=== PATIENT | female | born 1990 | race Caucasian/White ===

== ENCOUNTER 2016-08-20 17:17 | Emergency (ER) | payer BC ==
[2016-08-20 18:02] VITALS: BP 152/98
--- NOTE | 2016-08-20 18:16 | UC ---
Complaint Female HPI - HPI Summary HPI Summary: 3 days of pain and burning with urination, noted some hematuria last night and this morning, no fevers chills or night sweats - History Of Current Complaint Chief Complaint: UCGU Stated Complaint: URINARY ISSUE Time Seen by Provider: 08/20/16 18:06 Hx Obtained From: Patient Hx Last Menstrual Period: 1 WEEK AGO ?: No Onset/Duration: Sudden Onset, Lasting Days - 3, Still Present Timing: Constant Severity Initially: Mild Severity Currently: Mild Character: Burning Aggravating Factor(s): Urination Associated Signs And Symptoms: Positive: Negative - Allergies/Home Medications Allergies/Adverse Reactions: Allergies Allergy/AdvReac Type Severity Reaction Status Date / Time Acetaminophen Allergy Nausea And Verified 08/20/16 18:02 Vomiting MED - ?NAME Allergy Severe Vomiting Uncoded 08/20/16 18:02 PMH/Surg Hx/FS Hx/Imm Hx Previously Healthy: Yes Endocrine History Of: Denies: Diabetes, Thyroid Disease Cardiovascular History Of: Denies: Cardiac Disorders, Hypertension Respiratory History Of: Denies: COPD, Asthma GI/ History Of: Denies: Ulcer - Surgical History Surgical History: None - Family History Known Family History: Positive: None - Social History Occupation: Employed Full-time Lives: With Family Alcohol Use: Occasionally Substance Use Type: None Smoking Status (MU): Never Smoked Tobacco Type: eCigarettes Review of Systems Constitutional: Negative Skin: Negative Eyes: Negative ENT: Negative Respiratory: Negative Cardiovascular: Negative Gastrointestinal: Negative Genitourinary: Dysuria, Hematuria, Frequency, Urgency Motor: Negative Neurovascular: Negative Musculoskeletal: Negative Neurological: Negative Psychological: Negative All Other Systems Reviewed And Are Negative: Yes Physical Exam Triage Information Reviewed: Yes Appearance: Well-Appearing, No Pain Distress, Well-Nourished Vital Signs: Initial Vital Signs Temp 98 F 08/20/16 17:59 Pulse 85 08/20/16 17:59 Resp 16 08/20/16 17:59 BP 152/98 08/20/16 17:59 Pulse Ox 100 08/20/16 17:59 Vital Signs Reviewed: Yes Eye Exam: Normal Eyes: Positive: Conjunctiva Clear ENT Exam: Normal ENT: Positive: Normal ENT inspection, Hearing grossly normal, Pharynx normal. Negative: Nasal congestion, Nasal drainage, Trismus, Muffled/hoarse voice Dental Exam: Normal Neck exam: Normal Neck: Positive: Supple, Nontender, No Lymphadenopathy Respiratory Exam: Normal Respiratory: Positive: Chest non-tender, Lungs clear, Normal breath sounds, No respiratory distress, No accessory muscle use Cardiovascular Exam: Normal Cardiovascular: Positive: RRR, No Murmur, Pulses Normal, Brisk Capillary Refill Musculoskeletal Exam: Normal Musculoskeletal: Positive: Strength Intact, ROM Intact, No Edema Neurological Exam: Normal Neurological: Positive: Alert, Muscle Tone Normal Psychological Exam: Normal Skin Exam: Normal Diagnostics - Laboratory Diagnostic Studies Completed/Ordered: Ua +leuks and blood Complaint Female Dx - Course Course Of Treatment: macrobid, pyridium, increase fluids, follow with pcp prn - Differential Dx/Diagnosis Differential Diagnosis/HQI/PQRI: Renal Colic, Ureteral Stone, Urinary Tract Infection Provider Diagnoses: UTI Discharge - Discharge Plan Condition: Stable Disposition: HOME Prescriptions: Nitrofurantoin Monohyd Macro [Macrobid] 100 mg PO BID #20 cap Phenazopyridine TAB* [Pyridium 100 mg TAB*] 100 mg PO TID PRN #6 tab PRN Reason: urinary pain Patient Education Materials: Nitrofurantoin Combination (By mouth), Urinary Tract Infection in Women (ED), Hypertension (ED) Referrals: Raj Myles MD [Primary Care Provider] - 2 Weeks (for Blood Pressure Recheck )
== END 2016-08-20 18:26 | disposition home or self-care (01) ==
LOC: UCEAST 17:17
DX: N39.0 Urinary tract infection, site not specified (principal)
CPT/HCPCS: 81003; 87077; 87086; 87186; 99212; G0463

== ENCOUNTER 2016-10-23 13:57 | Emergency (ER) | payer BC ==
[2016-10-23] MEDS ORDERED: Ibuprofen TAB* 800 MG PO ONE (14:58)
[2016-10-23 15:31] LABS: Hematocrit 42 % (35-47); Hemoglobin 13.6 g/dl (12.0-16.0); Mean Corpuscular HGB Conc 32 g/dl (31-36); Mean Corpuscular Hemoglobin 28 pg (27-31); Mean Corpuscular Volume 87 fL (80-97); Mean Platelet Volume 7 um3 (7.4-10.4); Red Blood Count 4.83 10^6/ul (4.0-5.4); Red Cell Distribution Width 14 % (10.5-15); White Blood Count 10.9 10^3/ul (3.5-10.8)
[2016-10-23 15:44] LABS: Urine Bacteria Absent (Absent); Urine Bilirubin Negative (Negative); Urine Glucose Negative (Negative); Urine Nitrite Negative (Negative)
[2016-10-23 15:47] LABS: ALT 13 U/L (7-52); AST 16 U/L (13-39); Alkaline Phosphatase 81 U/L (34-104); Amylase 55 U/L (29-103); Anion Gap 7 mmol/L (2-11); BUN/Creatinine Ratio 22.7 (8-20); Blood Urea Nitrogen 17 mg/dL (6-24); C Reactive Protein 31.14 mg/L (< 5.00); CO2 Carbon Dioxide 25 mmol/L (22-32); Calcium 9.3 mg/dL (8.6-10.3); Chloride 107 mmol/L (101-111); Creatine Kinase 57 U/L (10-223); EGFR African American 122.1 (>60); EGFR Non-African American 94.9 (>60); Glucose 87 mg/dL (70-100); Lipase 39 U/L (11.0-82.0); Potassium 3.9 mmol/L (3.5-5.0); Sodium 139 mmol/L (133-145)
[2016-10-23] MEDS ORDERED: Ketorolac INJ* 60 MG/2 ML VIAL IM ONE (16:41)
[2016-10-23] MEDS ORDERED: Ketorolac INJ* 60 MG/2 ML VIAL ONE (16:43)
--- NOTE | 2016-10-23 17:31 | RAD ---
INDICATION: Hematuria, left flank pain. COMPARISON: There are no prior studies available for comparison. TECHNIQUE: A CT scan of the abdomen and pelvis was performed without intravenous or oral contrast. Contiguous axial sections were obtained from the lung bases through the symphysis pubis. Images were reconstructed in the coronal and sagittal planes. FINDINGS: The lung bases are clear. No pleural effusion is present. The liver is moderately enlarged without focal abnormality on this noncontrast study and appears unchanged from the prior exam. The gallbladder appears contracted. No calcific gallstones are seen. The spleen is within normal limits in size. No pancreatic calcifications or ductal distention is seen. The adrenal glands and kidneys are normal in size. No renal calculi or hydronephrosis is seen. No ureteral or bladder calculi are seen. The aorta is normal in caliber without significant calcific plaque. No significant enlarged retroperitoneal lymph nodes are seen. The stomach, small and large bowel appear nondistended. The appendix is within normal limits. There is no evidence for diverticulitis or colitis. The uterus is anteverted and normal in size. No free intraperitoneal air or fluid is seen. No significant focal osseous abnormality is seen. IMPRESSION: 1. NO EVIDENCE FOR ACUTE FINDING OR CAUSE FOR THE PATIENT'S ABDOMINAL PAIN IS SEEN. 2. HEPATOMEGALY, UNCHANGED.
[2016-10-23] MEDS ORDERED: Oxycodone TAB(NF) 10 MG TAB IMMEDIATE RELEASE PO ONE (20:21)
[2016-10-23] MEDS ORDERED: Sulfamethox/Trimethoprim DS 800/160* TAB PO ONE (20:23)
[2016-10-23] MEDS ORDERED: Ondansetron ODT TAB* 4 MG PO ONE (20:23)
[2016-10-23] MEDS ORDERED: Cyclobenzaprine TAB* 10 MG PO ONE (20:23)
[2016-10-23] MEDS ORDERED: oxyCODONE TAB* 5 MG TAB PO ONE (21:00)
[2016-10-23 21:29] VITALS: BP 147/92
--- NOTE | 2016-10-24 02:51 | ED ---
Martha Martinez Alfonso, scribed for Cecilia Ulloa MD on 10/23/16 at 1459 . GI/ HPI - HPI Summary HPI Summary: This patient is a 26 year old F presenting to [facility] c/o acute sharp left-sided flank pain which began three days ago. The pain became worse yesterday and she is currently in "a lot of pain." Ibuprofen did not alleviate her symptoms. Sx aggravated by movement and alleviated by nothing. She denies injury. Denies fever, urinary sxs. Pt states she was lifting and moving items 5 days ago, but pain did not become severe until today. The patient drove here herself. Denies PMHx of kidney stones. LNMP a few weeks ago, states she is not Pg. Acetaminophen allergy noted. - History of Current Complaint Chief Complaint: EDFlankPain Time Seen by Provider: 10/23/16 14:58 Stated Complaint: LT FLANK PAIN Hx Obtained From: Patient Onset/Duration: Started Days Ago - 3, Worse Since - Yesterday Timing: Constant Severity: Moderate Current Severity: Moderate Pain Intensity: 8 Location of Pain: Flank - Left-sided Pain Characteristics: Sharp Associated Signs and Symptoms: Positive: Flank Pain - left. Negative: Fever, Dysuria, Chills, Cough, UTI Symptoms Aggravating Factor(s): Movement, Deep Breaths Alleviating Factor(s): Nothing - Allergy/Home Medications Allergies/Adverse Reactions: Allergies Allergy/AdvReac Type Severity Reaction Status Date / Time Acetaminophen Allergy Nausea And Verified 08/20/16 18:02 Vomiting MED - ?NAME Allergy Severe Vomiting Uncoded 08/20/16 18:02 PMH/Surg Hx/FS Hx/Imm Hx Previously Healthy: Yes Endocrine/Hematology History: Denies: Hx Diabetes, Hx Thyroid Disease Cardiovascular History: Denies: Hx Hypertension Respiratory History: Denies: Hx Asthma, Hx Chronic Obstructive Pulmonary Disease (COPD) GI History: Denies: Hx Ulcer Infectious Disease History: No Infectious Disease History: Denies: Hx Hepatitis, Hx Human Immunodeficiency Virus (HIV), Traveled Outside the [place] in Last 30 Days - Family History Known Family History: Negative: Diabetes Family History: polycystic kidney disease - Social History Lives: With Family Alcohol Use: Occasionally Substance Use Type: Reports: None Smoking Status (MU): Never Smoked Tobacco Type: eCigarettes Review of Systems Constitutional: Negative Eyes: Negative ENT: Negative Cardiovascular: Negative Respiratory: Negative Gastrointestinal: Negative Genitourinary: Negative Positive: flank pain Musculoskeletal: Negative Skin: Negative Neurological: Negative Psychological: Normal All Other Systems Reviewed And Are Negative: Yes Physical Exam Triage Information Reviewed: Yes Vital Signs On Initial Exam: Initial Vitals Temp Pulse Resp BP Pulse Ox 97.6 F 105 20 178/88 100 10/23/16 14:25 10/23/16 14:25 10/23/16 14:25 10/23/16 14:25 10/23/16 14:25 Vital Signs Reviewed: Yes Appearance: Positive: Well-Nourished, Ill-Appearing, Pain Distress Skin: Positive: Warm, Dry, Other - no rash Eyes: Positive: EOMI, Conjunctiva Clear ENT: Positive: Normal ENT inspection, Hearing grossly normal. Negative: Muffled /hoarse voice Neck: Positive: Supple, Nontender, No Lymphadenopathy Respiratory/Lung Sounds: Positive: Clear to Auscultation, Breath Sounds Present Cardiovascular: Positive: RRR, Pulses are Symmetrical in both Upper and Lower Extremities. Negative: Murmur Abdomen Description: Positive: Nontender, No Organomegaly, Soft, CVA Tenderness (L). Negative: Bruit, CVA Tenderness (R), Distended, Guarding, Hepatomegaly, McBurney's Point Tenderness, Peritoneal Signs, Pulsatile Mass, Splenomegaly Bowel Sounds: Positive: Present Musculoskeletal: Positive: Strength/ROM Intact. Negative: Edema Left, Edema Right Neurological: Positive: Sensory/Motor Intact, Alert, Oriented to Person Place, Time. Negative: Facial Droop, Focal Deficit @, Slurred Speech Psychiatric: Positive: Normal Diagnostics - Vital Signs Vital Signs Temp Pulse Resp BP Pulse Ox 10/23/16 14:27 98.2 F 94 20 177/88 100 10/23/16 14:25 97.6 F 105 20 178/88 100 - Laboratory Lab Results: Lab Results 10/23/16 10/23/16 10/23/16 Range/Units 15:21 15:21 15:21 WBC 10.9 H (3.5-10.8) 10^3/ul RBC 4.83 (4.0-5.4) 10^6/ul Hgb 13.6 (12.0-16.0) g/dl Hct 42 (35-47) % MCV 87 (80-97) fL MCH 28 (27-31) pg MCHC 32 (31-36) g/dl RDW 14 (10.5-15) % Plt Count 320 (150-450) 10^3/ul MPV 7 L (7.4-10.4) um3 Neut % (Auto) 70.6 (38-83) % Lymph % (Auto) 21.8 L (25-47) % Rains % (Auto) 5.9 (1-9) % Eos % (Auto) 0.6 (0-6) % Baso % (Auto) 1.1 (0-2) % Absolute Neuts (auto) 7.7 (1.5-7.7) 10^3/ul Absolute Lymphs (auto) 2.4 (1.0-4.8) 10^3/ul Absolute Monos (auto) 0.6 (0-0.8) 10^3/ul Absolute Eos (auto) 0.1 (0-0.6) 10^3/ul Absolute Basos (auto) 0.1 (0-0.2) 10^3/ul Absolute Nucleated RBC 0 10^3/ul Nucleated RBC % 0 INR (Anticoag Therapy) 0.87 L (0.89-1.11) Sodium 139 (133-145) mmol/L Potassium 3.9 (3.5-5.0) mmol/L Chloride 107 (101-111) mmol/L Carbon Dioxide 25 (22-32) mmol/L Anion Gap 7 (2-11) mmol/L BUN 17 (6-24) mg/dL Creatinine 0.75 (0.51-0.95) mg/dL Est GFR ( Amer) 122.1 (>60) Est GFR (Non-Af Amer) 94.9 (>60) BUN/Creatinine Ratio 22.7 H (8-20) Glucose 87 (70-100) mg/dL Lactic Acid (0.5-2.0) mmol/L Calcium 9.3 (8.6-10.3) mg/dL Total Bilirubin 0.20 (0.2-1.0) mg/dL AST 16 (13-39) U/L ALT 13 (7-52) U/L Alkaline Phosphatase 81 (34-104) U/L Total Creatine Kinase 57 (10-223) U/L C-Reactive Protein 31.14 H (< 5.00) mg/L Total Protein 7.0 (6.4-8.9) g/dL Albumin 4.0 (3.2-5.2) g/dL Globulin 3.0 (2-4) g/dL Albumin/Globulin Ratio 1.3 (1-3) Amylase 55 (29-103) U/L Lipase 39 (11.0-82.0) U/L Beta HCG, Quant < 0.60 mIU/mL Urine Color Urine Appearance Urine pH (5-9) Ur Specific [place] (1.010-1.030) Urine Protein (Negative) Urine Ketones (Negative) Urine Blood (Negative) Urine Nitrate (Negative) Urine Bilirubin (Negative) Urine Urobilinogen (Negative) Ur Leukocyte Esterase (Negative) Urine WBC (Auto) (Absent) Urine RBC (Auto) (Absent) Ur Squamous Epith Cells (Absent) Urine Bacteria (Absent) Urine Glucose (Negative) 10/23/16 10/23/16 Range/Units 15:21 15:25 WBC (3.5-10.8) 10^3/ul RBC (4.0-5.4) 10^6/ul Hgb (12.0-16.0) g/dl Hct (35-47) % MCV (80-97) fL MCH (27-31) pg MCHC (31-36) g/dl RDW (10.5-15) % Plt Count (150-450) 10^3/ul MPV (7.4-10.4) um3 Neut % (Auto) (38-83) % Lymph % (Auto) (25-47) % Rains % (Auto) (1-9) % Eos % (Auto) (0-6) % Baso % (Auto) (0-2) % Absolute Neuts (auto) (1.5-7.7) 10^3/ul Absolute Lymphs (auto) (1.0-4.8) 10^3/ul Absolute Monos (auto) (0-0.8) 10^3/ul Absolute Eos (auto) (0-0.6) 10^3/ul Absolute Basos (auto) (0-0.2) 10^3/ul Absolute Nucleated RBC 10^3/ul Nucleated RBC % INR (Anticoag Therapy) (0.89-1.11) Sodium (133-145) mmol/L Potassium (3.5-5.0) mmol/L Chloride (101-111) mmol/L Carbon Dioxide (22-32) mmol/L Anion Gap (2-11) mmol/L BUN (6-24) mg/dL Creatinine (0.51-0.95) mg/dL Est GFR ( Amer) (>60) Est GFR (Non-Af Amer) (>60) BUN/Creatinine Ratio (8-20) Glucose (70-100) mg/dL Lactic Acid 1.5 (0.5-2.0) mmol/L Calcium (8.6-10.3) mg/dL Total Bilirubin (0.2-1.0) mg/dL AST (13-39) U/L ALT (7-52) U/L Alkaline Phosphatase (34-104) U/L Total Creatine Kinase (10-223) U/L C-Reactive Protein (< 5.00) mg/L Total Protein (6.4-8.9) g/dL Albumin (3.2-5.2) g/dL Globulin (2-4) g/dL Albumin/Globulin Ratio (1-3) Amylase (29-103) U/L Lipase (11.0-82.0) U/L Beta HCG, Quant mIU/mL Urine Color Yellow Urine Appearance Clear Urine pH 6.0 (5-9) Ur Specific [place] 1.020 (1.010-1.030) Urine Protein Negative (Negative) Urine Ketones Negative (Negative) Urine Blood 1+ H (Negative) Urine Nitrate Negative (Negative) Urine Bilirubin Negative (Negative) Urine Urobilinogen Negative (Negative) Ur Leukocyte Esterase Trace H (Negative) Urine WBC (Auto) Trace(0-5/hpf) (Absent) Urine RBC (Auto) 1+(3-5/hpf) H (Absent) Ur Squamous Epith Cells Present H (Absent) Urine Bacteria Absent (Absent) Urine Glucose Negative (Negative) Result Diagrams: 10/23/16 15:21 10/23/16 15:21 Lab Statement: Any lab studies that have been ordered have been reviewed, and results considered in the medical decision making process. - CT CT A/P CT Interpretation: No Acute Changes - 1. NO EVIDENCE FOR ACUTE FINDING OR CAUSE FOR THE PATIENT'S ABDOMINAL PAIN IS SEEN. 2. HEPATOMEGALY, UNCHANGED. CT Interpretation Completed By: Radiologist Re-Evaluation - Re-Evaluation First Eval Re-Evaluation Time: 20:48 Change: Unchanged Comment: Still in pain, but wants to go home. Explained the differential diagnoses to her, though it is likely muscle strain. GIGU Course/Dx - Course Assessment/Plan: Pt is a 26 y/o F who presents to ED c/o sharp L flank pain for 3 days, worsening yesterday. Denies injury. No PMHx kidney stones. CT Abd/Pel reveals hepatomegaly with no other acute findings. Pt states she has had prior CT's and been dx'd constipation, believes she was told hepatomegaly in the past. No pyelo or ureteral stones or polycystic kidneys on CT. No cause for pt 's pain based on CT. Pt is worse with movement, was relieved with toradol IM. Pt does not want narcotic prescription (a family member abuses narcotics). Pt agrees to treat possible UTI, try oral toradol and flexeril as muscle relaxant. She will f/u re hepatomegaly. Allergies noted. Pt medications reviewed this visit. - Diagnoses Differential Diagnoses - Female: Constipation, Diverticulitis, Herpes - zoster, Pneumonia, Urinary Tract Infection, Ureteral Calculi Provider Diagnoses: Acute left flank pain, Hepatomegaly Discharge - Discharge Plan Condition: Stable Disposition: HOME Prescriptions: Cyclobenzaprine TAB* [Flexeril 10 MG TAB*] 10 mg PO TID PRN #15 tab PRN Reason: Pain Ketorolac TAB * [Toradol TAB *] 10 mg PO Q6H #20 tab Sulfamethox/Trimethoprim DS* [Bactrim DS 800/160 TAB*] 1 tab PO BID #14 tab Patient Education Materials: Flank Pain (ED) Referrals: Raj Myles MD [Primary Care Provider] - 2 Days Additional Instructions: Please stop the ibuprofen while you are taking ketorolac for pain. Return to the ED if you have any new or worsening symptoms. The documentation as recorded by the Martha vazquez Alfonso accurately reflects the service I personally performed and the decisions made by me, Cecilia Ulloa MD.
== END 2016-10-23 21:27 | disposition home or self-care (01) ==
LOC: ED 13:57
DX: R10.84 Generalized abdominal pain (principal); R16.0 Hepatomegaly, not elsewhere classified
CPT/HCPCS: 36415; 74176; 80053; 81003; 81015; 82150; 82550; 83605; 83690; 84702; 85025; 85610; 86140; 87086; 90471; 99284; A9270-GY; J1885

== ENCOUNTER 2019-07-06 09:36 | Emergency (ER) | payer BC, OTHER ==
--- OUTSIDE RECORDS SUMMARY | 2019-07-06 11:31 | XMS REPORT | Continuity of Care Document ---
:1990 External Reference #:[id number] Author Name Constanza Hartmann DNP, RN, S[employer]K SCREEN PROCESSOR-BC (transmitted by agent of provider Janice Crocektt) Address [address], [address] [place] [address] Care Team Providers Name Role Phone Florence Chliders MD - Internal Care Team Information Equipment Maintenance Tech Medicine Problems Active Problems Provider Date Closed fracture of lumbar vertebra Sj Venegas M.D. Onset: 05/24/2015 without spinal cord injury Obstructive sleep apnea syndrome Constanza Hartmann DNP, RN, S[employer]K SCREEN PROCESSOR-BC Onset: 10/2017 Tobacco user Constanza Hartmann DNP RN, SILK SCREEN PROCESSOR-BC Onset: 07/20/2017 Disorder of nasal cavity Constanza Hartmann DNP RN, S[employer]K SCREEN PROCESSOR-BC Onset: 12/17/2017 Body mass index 30+ - obesity Constanza Hartmann DNP, RN, SILK SCREEN PROCESSOR-BC Onset: 2017 Social History Type Date Description Comments Sex Unknown Tobacco Use Start: Unknown Occasionally Smokes Cigarettes Tobacco Use Start: Unknown Vaping Every day, with nicotine Smoking Status Reviewed: 05/26/19 Vaping Every day, with nicotine ETOH Use Occasionally consumes alcohol Recreational Drug Use Denies Drug Use Tobacco Use Start: Unknown Patient is a current Occasional cigarette smoker, smokes some days Smoking 2013 Vaping Every day, with nicotine Exercise Type/Frequency Exercises regularly Exercise Type/Frequency Walks 5 times a week Allergies, Adverse Reactions, Alerts Active Allergies Reaction Severity Comments Date Acetaminophen 05/24/2015 Medications Active Medications SIG Qnty Indications Ordering Provider Date Jolessa daily Unknown 0.15-0.03mg Tablets Ibuprofen 1 by mouth three Unknown 600mg Tablets times a day as needed Trazodone HCL 1 tablet at Unknown 50mg bedtime as needed Tablets for sleep (states not taking 03/25/18) Immunizations Description No Information Available Vital Signs Date Vital Result Comment 05/26/2019 8:03am Height 63 inches 5'3" Weight 198.00 lb Heart Rate 91 /min BP Systolic Sitting 128 mmHg BP Diastolic Sitting 80 mmHg O2 % BldC Oximetry 98 % BMI (Body Mass Index) 35.1 kg/m2 03/31/2019 8:01am Height 63 inches 5'3" Weight 185.00 lb Heart Rate 107 /min BP Systolic 130 mmHg BP Diastolic 80 mmHg O2 % BldC Oximetry 97 % BMI (Body Mass Index) 32.8 kg/m2 Results Description No Information Available Procedures Description No Information Available Medical Devices Description No Information Available Encounters Type Date Location Provider Dx Diagnosis Office Visit 03/31/2019 Pul[facility] And Constanza Hartmann, G47.33 Obstructive sleep 8:15a [facility], [employer]K SCREEN PROCESSOR-KIKO apnea (adult) [facility] (pediatric) G47.14 Hypersomnia due to medical condition Assessments Date Code Description Provider 05/26/2019 G47.33 Obstructive sleep apnea (adult) Constanza Hartmann DNP, RN, (pediatric) [employer] SCREEN PROC[employer]BC 05/26/2019 G47.14 Hypersomnia due to medical Constanza Hartmann DNP, RN, condition [employer] SCREEN PROCESSOR-BC 05/26/2019 F17.200 Nicotine dependence, unspecified, Constanza Hartmann DNP RN, uncomplicated [employer]K SCREEN PROCESSOR-BC 03/31/2019 G47.33 Obstructive sleep apnea (adult) Constanza Hartmann DNP, RN, (pediatric) [employer] SCREEN PROCESSOR-BC 03/31/2019 G47.14 Hypersomnia due to medical Constanza Hartmann DNP, RN, condition SILK SCREEN PROCESSOR- Plan of Treatment Future Appointment(s):09/01/2019 8:15 am - Constanza Hartmann DNP, RN, SILK SCREEN PROCESSOR-BC at [facility]05/26/2019 - Constanza Hartmann DNP, RN, SILK SCREEN PROCESSOR- BCG47.33 Obstructive sleep apnea (adult) (pediatric)Comments:Sleep Apnea - NPSG 06/22/17 AHI 6.9/hour, ada oxygen 92% On CPAP 5-7 cm AHI 2.3/hourFollow up: 3 monthsRecommendations:Continue PAP device, Benefitting and increase use Research disinfecting devices (ozone vs ultraviolet) Cleaning Wipe off mask daily (baby wipe-no scent, or warm water) Clean mask, tubing, filter, and water chamber weekly in mild no scent dish soap and water. Hang to dry. If you have any sleepinesswhile driving you MUST avoid operating a vehicle or machinery. If you have difficulty with your equipment, or need to replace your mask or hoses, please contact your homecare agency. A weight change of20 pounds or more may have an effect on your equipment; if you are experiencing problems please callfor an appointment. Weight loss recommended, reduce carbohydrates. Use plate method. Switch to herbal tea (no sugar) If you have any further questions, please call the [facility] at [phone].g47.18 Hypersomnia due to medical conditionRecommendations:Complicated by untreated sleep apnea, recommend increase use of CPAPF17.200 Nicotine dependence, unspecified, uncomplicatedRecommendations:Continue to cut down Functional Status Description No Information Available Mental Status Description No Information Available Referrals Description No Information Available
--- OUTSIDE RECORDS SUMMARY | 2019-07-06 11:31 | XMS REPORT | Continuity of Care Document ---
:1990 External Reference #:[id number] Author Name Florence Chidlers M.D. Address [address] [place] [address] Care Team Providers Name Role Phone Florence Childers - Family Medicine Care Team Information Oncology Physician Assistant Denise López MD - Sports Medicine Care Team Information Oncology Physician Assistant [phone] Problems Active Problems Provider Date Gout Raj Myles M.D. Onset: 01/22/2015 Tobacco user Florence Childers M.D. Onset: 08/01/2012 Social History Type Date Description Comments Sex Unknown ETOH Use Occasional 3 times weekly, 1-3 drink each time. average - 5 per week. Tobacco Use Start: Unknown Patient is a current 1-2 a day. vapes smoker, smokes every day every day, couple of times a day Smoking Status Reviewed: 03/01/19 Patient is a current 1-2 a day. vapes smoker, smokes every day every day, couple of times a day Exercise Exercises regularly joined a gym. Type/Frequency walks 1/2 hour to 45 min every day at her lunch break. Seat Belt/Car Seat Always uses seat belt Allergies, Adverse Reactions, Alerts Active Allergies Reaction Severity Comments Date Acetaminophen severe nausea 02/07/2014 Tomatoes abd pain/severe diarrhea 02/17/2018 Inactive Allergies NKDA 06/27/2012 Medications Active Medications SIG Qnty Indications Ordering Date Provider Amoxicillin/Clavulana 1 twice a day w/ 20tabs J02.9 Florence Flores 06/22/2019 te Potassium food. Nicolas Childers 875-125mg Tablets Jolessa take one tablet by 91tabs Z30.9 Damaris He, 09/10/2012 0.15-0.03mg mouth once daily ACCOUNTS PAYABLE ASSISTANT Tablets Imodium A-D 2 tabs after first Unknown 2mg Tablets diarrrheal stool, 1 after each subsequent stool, mdd 8 prn Ibuprofen 200 3-4 tabs by mouth Unknown 200mg every 4 hours as Tablets needed One Daily 1 tab daily Unknown Multivitamin Women Tablets History Medications Fluconazole 1 by mouth. 4tabs B37.3 Florence Flores 03/01/2019 - 200mg repeat in 4 days Nicolas Childers 06/22/2019 Tablets as necessary Amoxicillin/Clavulan 1 by mouth twice 28tabs J01.90 Damaris Neri, 2018 - ate Potassium a day with food ACCOUNTS PAYABLE ASSISTANT 03/01/2019 875-125mg Tablets Guaifenesin-Codeine 5-10ml by mouth 120ml R05 Yris 01/30/2019 - at hs prn cough , [place], Afnp-C 02/06/2019 100-10mg/5ML Syrup may repeat in 3-4 hrs x 1 Immunizations CPT Code Status Date Vaccine Lot # [id number] Given 02/12/2017 Tdap Tetanus, W Pertussis [id number] Vital Signs Date Vital Result Comment 06/22/2019 3:44pm BP Systolic 136 mmHg BP Diastolic 90 mmHg Heart Rate 84 /min Body Temperature 98.4 F Height 63 inches 5'3" Weight 203.00 lb BMI (Body Mass Index) 36.0 kg/m2 03/01/2019 1:05pm BP Systolic 122 mmHg BP Diastolic 90 mmHg Heart Rate 88 /min Body Temperature 97.9 F Respiratory Rate 16 /min Height 63 inches 5'3" Weight 188.00 lb BMI (Body Mass Index) 33.3 kg/m2 Results Test Acquired Date Facility Test Result H/L Range Note Laboratory test 06/22/2019 [facility] Quickstrep NEG Negative finding (607)- - Procedures Description No Information Available Medical Devices Description No Information Available Encounters Type Date Location Provider Dx Diagnosis Office Visit 03/01/2019 Main Office Florence Childers, Z00.01 Encounter for 1:00p M.D. general adult medical exam w abnormal findings F17.210 Nicotine dependence, cigarettes, uncomplicated B37.3 Candidiasis of vulva and vagina L85.3 Xerosis cutis Office Visit 02/03/2019 2:30p Main Office Damaris He, J01.90 Acute sinusitis, ACCOUNTS PAYABLE ASSISTANT unspecified R05 Cough Office Visit 01/30/2019 9:30a Main Office Yris Renteria, J06.9 Acute upper Afnp-C respiratory infection, unspecified R05 Cough Assessments Date Code Description Provider 06/22/2019 J02.9 Acute pharyngitis, unspecified Florence Childers M.D. 03/01/2019 Z00.01 Encounter for general adult medical Florence Childers M.D. examination with abnormal findings 03/01/2019 F17.210 Nicotine dependence, cigarettes, Florence Childers M.D. uncomplicated 03/01/2019 B37.3 Candidiasis of vulva and vagina Florence Childers M.D. 03/01/2019 L85.3 Xerosis cutis Florence Childers M.D. 02/03/2019 J01.90 Acute sinusitis, unspecified Damaris He, ACCOUNTS PAYABLE ASSISTANT 02/03/2019 R05 Cough Damaris He, ACCOUNTS PAYABLE ASSISTANT 01/30/2019 J06.9 Acute upper respiratory infection, Yris [place]line, Afnp-C unspecified 01/30/2019 R05 Cough Yris Eganomar, Afnp-C Plan of Treatment 06/22/2019 - Florence Childers M.D.J02.9 Acute pharyngitis, unspecifiedNew Medication:Amoxicillin/Clavulanate Potassium 875-125 mg - 1 twice a day w/ food.Comments:even though strep screen negative she has many signs and symptoms of strep throat in addidtion to being exposed to strep through her sister, will treat with antibiotic. Augmentin.hot black tea with lemon and honey. osbaldo and or garlic or red pepper.ibuprofen with food in your stomachvit d 10,000 a day while sick vit c 1000 mg three times a day.AllComments:Medication Management Patient Understands medications she 's taking? Yes No Are there Barriers to Adherence? Yes No Has the patient been asked about herbal supplements and therapies, and OTC meds? Yes No Care Plan1. Patient has been queried about patient's goals/preferences and functional/lifestyle goals at relevant visits. If relevant, describe: na2. Treatment goals as explained to the patient: above3. Are there barriers to meeting treatment goals? Yes No If Yes, please describe:4. Self- Management goals as described to the patient: Yes No Functional Status Description No Information Available Mental Status Description No Information Available Referrals Description No Information Available
--- OUTSIDE RECORDS SUMMARY | 2019-07-06 11:31 | XMS REPORT | Continuity of Care Document ---
:1990 External Reference #:[id number] Author Name Florence Childers M.D. Address [address] [place] [address] Care Team Providers Name Role Phone Florence Childers - Family Medicine Care Team Information Head Grease Maker [phone] Denise López MD - Sports Medicine Care Team Information Head Grease Maker [phone] Problems Active Problems Provider Date Gout Raj [...] Damaris He, 09/10/2012 0.15-0.03mg mouth once daily TILT TRAY DRIVER Tablets Imodium A-D 2 tabs after first [...] 1 by mouth twice 28tabs J01.90 Damaris He, 2018 - ate Potassium a day with food TILT TRAY DRIVER 03/01/2019 875-125mg Tablets Guaifenesin-Codeine 5-10ml by mouth 120ml R05 Yris 01/30/2019 - at hs prn cough , [place], Afnp-C 02/06/2019 100-10mg/5ML Syrup may repeat in 3-4 hrs x 1 Immunizations CPT Code Status Date Vaccine Lot # [id number] Given 02/12/2017 Tdap Tetanus, W Pertussis [id number] [...] BMI (Body Mass Index) 33.3 kg/m2 Results Description No Information Available Procedures Description No Information Available Medical Devices Description No Information Available Encounters Type Date Location Provider Dx Diagnosis Office Visit 03/01/2019 Main Office Florence Childers Z00.01 Encounter for 1:00p M.DAbimael general adult medical exam w abnormal findings F17.210 Nicotine dependence, cigarettes, uncomplicated B37.3 Candidiasis of vulva and vagina L85.3 Xerosis cutis Office Visit 02/03/2019 2:30p Main Office Ajay Hernandes01.90 Acute sinusitis, TILT TRAY DRIVER unspecified R05 Cough Office Visit 01/30/2019 9:30a [...] M.D. 02/03/2019 J01.90 Acute sinusitis, unspecified Damaris Elenar, TILT TRAY DRIVER 02/03/2019 R05 Cough Damaris Elenar, [facility] 01/30/2019 J06.9 Acute upper respiratory infection, Yris Renteria, Afnp-C unspecified 01/30/2019 R05 Cough Yris Renteria, Afnp-C Plan of Treatment 06/22/2019 - Florence [...]
[2019-07-06 11:35] VITALS: BP 141/85
--- NOTE | 2019-07-06 12:26 | UC ---
Lower Extremity/Ankle HPI - HPI Summary HPI Summary: 29-year-old female presenting with right anterior lower leg pain 4 days after she states she fell on the stairs. He states that the bruising has worsened since the time of injury and she woke up today and noticed "a deep bruise that looks like a pool of blood" at the inside of her right foot. Notes constant throbbing of the anterior bee that becomes a sharp pain with ambulation and weightbearing. Denies knee and ankle pain. Does note some tenderness of the right medial foot where the bruising is. Denies numbness and tingling. Denies decreased range of motion. Denies taking anything for symptom relief. - History of Current Complaint Chief Complaint: UCLowerExtremity Stated Complaint: LEG INJURY Hx Obtained From: Patient Hx Last Menstrual Period: 3 month cycle Pain Intensity: 8 Pain Scale Used: 0-10 Numeric - Allergies/Home Medications Allergies/Adverse Reactions: Allergies Allergy/AdvReac Type Severity Reaction Status Date / Time acetaminophen Allergy Nausea And Verified 07/06/19 11:36 Vomiting Home Medications: Home Medications Levonorgestrel-Ethin Estradiol [Jolessa 0.15 mg-0.03 mg Tablet] 1 tab PO [History Confirmed 05/21/15] Naproxen [Naproxen 500 mg tab] 500 mg PO BID PRN #30 tablet 07/06/19 [Rx] PMH/Surg Hx/FS Hx/Imm Hx - Surgical History Surgical History: None - Family History Known Family History: Positive: None Negative: Diabetes Family History: polycystic kidney disease - Social History Alcohol Use: Daily Substance Use Type: None Smoking Status (MU): Current Some Day Smoker Type: eCigarettes Review of Systems All Other Systems Reviewed And Are Negative: No Constitutional: Positive: Negative Skin: Positive: Bruising - anterior RLE and right medial foot Respiratory: Positive: Negative Cardiovascular: Positive: Negative Neurovascular: Positive: Negative Musculoskeletal: Positive: Arthralgia - RLE. Negative: Decreased ROM, Edema Neurological/Mental Status: Positive: Negative. Negative: Paresthesia, Numbness Physical Exam - Summary Physical Exam Summary: Vital Signs Reviewed: Yes A+Ox3, no distress Eyes: Conjunctiva Clear ENT: Hearing grossly normal neck: supple Respiratory: Positive: No respiratory distress, No accessory muscle use Cardiovascular: skin color reflect adequate perfusion Musculoskeletal Exam: +TTP of anterior RLE, no edema, ecchymosis noted of anterior RLE and right medial ankle/foot, knee and ankle ROM intact, able to ambulate with mild discomfort, sensation grossly intact, 2+ DP/PT pulses, cap refill <2sec Neurological: Positive: Alert Psychological: Positive: age appropriate behavior Skin: Positive: see above Vital Signs: Initial Vital Signs Temp 100.2 F 07/06/19 11:31 Pulse 90 07/06/19 11:31 Resp 20 07/06/19 11:31 BP 141/85 07/06/19 11:31 Pulse Ox 99 07/06/19 11:31 Diagnostics - Radiology right foot Radiology Interpretation Completed By: Radiologist Summary of Radiographic Findings: IMPRESSION: NO FRACTURE IS IDENTIFIED. IF CLINICALLY EQUIVOCAL, A DEDICATED CALCANEAL RADIOGRAPH COULD BE OBTAINED. right tib fib Radiology Interpretation Completed By: Radiologist Summary of Radiographic Findings: IMPRESSION: No fracture identified. Lower Extremity Course/Dx - Course Course Of Treatment: Discussed negative radiographs of the patient. Educated patient on contusions and instructed to rest, ice, and elevate to alleviate pain and swelling. Provided patient with prescription for naproxen as well. Instructed to follow up with pcp or ortho if pain does not resolve within 2 weeks. Patient voiced understanding and agreed with treatment plan. - Differential Dx/Diagnosis Differential Diagnosis/HQI/PQRI: Contusion, Fracture (Closed), Sprain, Strain Provider Diagnosis: Contusion of right lower leg Discharge ED - Sign-Out/Discharge Documenting (check all that apply): Patient Departure All imaging exams completed and their final reports reviewed: Yes - Discharge Plan Condition: Stable Disposition: HOME Prescriptions: Naproxen [Naproxen 500 mg tab] 500 mg PO BID PRN #30 tablet PRN Reason: Pain - Moderate Patient Education Materials: Contusion in Adults (ED) Referrals: Florence Childers MD [Primary Care Provider] - If Needed Anamaria King MD [Medical Doctor] - If Needed Additional Instructions: Your xrays did not show any abnormalities. Rest, ice, and elevate to help alleviate pain symptoms. Take Naproxen as prescribed for pain relief. Do not take ibuprofen or other NSAIDs while taking this medication. Refrain from strenuous physical activity until pain has resolved. Follow up with your primary care provider or the orthopedics referral listed below if pain does not improve within 1-2 weeks. - Billing Disposition and Condition Condition: STABLE Disposition: Home
== END 2019-07-06 13:32 | disposition home or self-care (01) ==
LOC: UCEAST 09:36
DX: S80.11XA Contusion of right lower leg, initial encounter (principal); F17.290 Nicotine dependence, other tobacco product, uncomplicated; Z88.6 Allergy status to analgesic agent; W10.8XXA Fall (on) (from) other stairs and steps, initial encounter; Y92.9 Unspecified place or not applicable
CPT/HCPCS: 99211; G0463

== ENCOUNTER 2019-08-12 12:10 | Emergency (ER) | payer BC, OTHER ==
--- NOTE | 2019-08-12 12:27 | ED ---
Respiratory - HPI Summary HPI Summary: 29 year old F presenting to [facility] with a chief complaint of chest tightness/ heaviness and increased effort with breathing since 3 days ago, worse since today. Patient reports a mild fever and diarrhea. The patient rates the pain 1/ 10 in severity. Symptoms aggravated by nothing. Symptoms alleviated by nothing. She contacted her PCP who advised her to come to the emergency department for further evaluation. The patient was tested for COVID-19 4 days ago which was negative. She had an allergic reaction last weekend. Medication list reviewed. Allergy list reviewed. - History of Current Complaint Chief Complaint: EDUpperRespComplaint Stated Complaint: HEAVY CHEST/SOB PER PT Time Seen by Provider: 08/12/19 12:15 Hx Obtained From: Patient Onset/Duration: Lasting Days, Still Present Current Severity: Mild Pain Intensity: 1 Aggravating Factor(s): Nothing Alleviating Factor(s): Nothing Associated Signs and Symptoms: Fever - Allergy/Home Medications Allergies/Adverse Reactions: Allergies Allergy/AdvReac Type Severity Reaction Status Date / Time acetaminophen Allergy Nausea And Verified 08/12/19 12:15 Vomiting tomato Allergy Airway Verified 08/12/19 12:15 Obstruction Home Medications: Home Medications Levonorgestrel-Ethin Estradiol [Jolessa 0.15 mg-0.03 mg Tablet] 1 tab PO [History Confirmed 05/21/15] Naproxen [Naproxen 500 mg tab] 500 mg PO BID PRN #30 tablet 07/06/19 [Rx] PMH/Surg Hx/FS Hx/Imm Hx Endocrine/Hematology History: Denies: Hx Diabetes, Hx Thyroid Disease Cardiovascular History: Denies: Hx Hypertension Respiratory History: Denies: Hx Asthma, Hx Chronic Obstructive Pulmonary Disease (COPD) GI History: Denies: Hx Ulcer - Surgical History Surgical History: None Infectious Disease History: No Infectious Disease History: Denies: Hx Hepatitis, Hx Human Immunodeficiency Virus (HIV), Traveled Outside the [place] in Last 30 Days - Family History Known Family History: Positive: Hypertension, Diabetes Family History: polycystic kidney disease - Social History Alcohol Use: Daily Substance Use Type: Reports: None Hx Tobacco Use: Yes Smoking Status (MU): Current Some Day Smoker Type: eCigarettes Review of Systems Positive: Fever Positive: Other - Chest heaviness Positive: Shortness Of Breath Positive: Diarrhea All Other Systems Reviewed And Are Negative: Yes Physical Exam - Summary Physical Exam Summary: Constitutional: Well-developed, Well-nourished, Alert. (-) Distressed Skin: Warm, Dry HENT: Normocephalic; Atraumatic Eyes: Conjunctiva normal Neck: Musculoskeletal ROM normal neck. (-) JVD, (-) Stridor, (-) Nuchal rigidity Cardio: Rhythm regular, tachycardic, Heart sounds normal; Intact distal pulses; Radial pulses are 2+ and symmetric. (-) Murmur Pulmonary/Chest wall: Effort normal. (-) Respiratory distress, (-) Wheezes, (-) Rales Abd: Soft, (-) tenderness, (-) Distension, (-) Guarding, (-) Rebound Musculoskeletal: (-) Edema Lymph: (-) Cervical adenopathy Neuro: Alert, Oriented x3 Psych: Mood and affect Normal Triage Information Reviewed: Yes Vital Signs On Initial Exam: Initial Vitals Temp Pulse Resp BP Pulse Ox 98.3 F 111 20 152/107 97 08/12/19 12:12 08/12/19 12:12 08/12/19 12:12 08/12/19 12:12 08/12/19 12:12 Vital Signs Reviewed: Yes Procedures - Sedation Patient Received Moderate/Deep Sedation with Procedure: No Diagnostics - Vital Signs Vital Signs Temp Pulse Resp BP Pulse Ox 08/12/19 12:12 98.3 F 111 20 152/107 97 - Laboratory Result Diagrams: 08/12/19 12:31 08/12/19 12:31 Lab Statement: Any lab studies that have been ordered have been reviewed, and results considered in the medical decision making process. - Radiology Chest x-ray Radiology Interpretation Completed By: Radiologist Summary of Radiographic Findings: No active cardiopulmonary disease is noted. ED physician has reviewed this report. - EKG 12:21 Cardiac Rate: Tachycardia - 104 BPM EKG Rhythm: Sinus Tachycardia Summary of EKG Findings: An EKG at 12:21 reveals sinus tachycardia rate of 104, T-Wave flattening in lead 3. ED physician has reviewed and interpreted this EKG. Disposition - Course Course Of Treatment: 29-year-old female with URI-like symptoms presents with shortness of breath. Shortness of breath ddx: Most likely 2/2 URI. COVID negative, easy WOB on RA. Also consider: COPD exacerbation/asthma - no h/o COPD, no wheezing on exam. Low suspicion. PNA - no sputum production, no fevers or chills. No leukocytosis. CXR w/o infiltrate. Low suspicion. PTX - breath sounds equal, no risk factors for PTX, CXR w/o e/o PTX. ACS -No EKG changes, reporting tightness/no CP. Low suspicion. CHF - no h/o CHF, no WORKMAN or orthopnea, no BLE edema, CXR w/o pulmonary edema. PE - no risk factors for PE, no unilateral leg swelling. Well's low risk, d-dimer normal. Patient stable for outpatient follow up - Diagnoses Provider Diagnoses: Shortness of breath, Chest tightness Discharge ED - Sign-Out/Discharge Documenting (check all that apply): Patient Departure - Discharge Plan Condition: Stable Disposition: HOME Patient Education Materials: Chest Pain (ED), Shortness of Breath (ED) Referrals: Florence Childers MD [Primary Care Provider] - Additional Instructions: You were seen in the emergency department for shortness of breath and chest tightness. Your's chest x-ray did not show any abnormalities, EKG was normal. If any studies were not completed at the time of discharge you will be called with the relevant results. Please follow up with your primary care doctor in next 2-3 days and return to emergency department for continued chest pain, shortness of breath, passing out or worsening or concerning symptoms. It was a pleasure taking care of you today. - Billing Disposition and Condition Condition: STABLE Disposition: Home - Attestation Statements Document Initiated by Diane: Yes Documenting Leifibe: Tasha Valentino Provider For Whom Diane is Documenting (Include Credential): Elisa Marc MD Scribe Attestation: I, Tasha Valentino, scribed for Elisa Marc MD on 08/12/19 at 1553. Scribe Documentation Reviewed: Yes Provider Attestation: The documentation as recorded by the Tasha vazquez accurately reflects the service I personally performed and the decisions made by me, Elisa Marc MD Status of Scribe Document: Viewed
[2019-08-12 12:39] LABS: ABS Basophils 0.1 10^3/ul (0-0.2); ABS Eosinophils 0.1 10^3/ul (0-0.6); ABS Lymphocytes 2.2 10^3/ul (1.0-4.8); ABS Monocytes 0.5 10^3/ul (0-0.8); Eosinophil % 0.7 %; Hematocrit 41 % (35-47); Hemoglobin 14.1 g/dL (12.0-16.0); Lymphocyte % 24.6 %; Mean Corpuscular HGB Conc 34 g/dL (31-36); Mean Corpuscular Hemoglobin 30 pg (27-31); Mean Corpuscular Volume 87 fL (80-97); Mean Platelet Volume 7.3 fL (7.4-10.4); Nucleated Red Blood Cells % 0.1; Platelet Count 356 10^3/uL (150-450); Red Blood Count 4.75 10^6 /uL (3.70-4.87); Red Cell Distribution Width 14 % (10-15); White Blood Count 8.8 10^3/uL (3.5-10.8)
[2019-08-12 12:56] LABS: Albumin 4.1 g/dL (3.2-5.2); Albumin/Globulin Ratio 1.4 (1-3); BUN/Creatinine Ratio 12.4 (8-20); Calcium 9.4 mg/dL (8.6-10.3); EGFR African American 92.1 (>60); EGFR Non-African American 76.1 (>60); Potassium 3.9 mmol/L (3.5-5.0); Total Bilirubin 0.4 mg/dL (0.2-1.0); Total Protein 7.1 g/dL (6.4-8.9)
--- OUTSIDE RECORDS SUMMARY | 2019-08-12 13:56 | XMS REPORT | Continuity of Care Document ---
:1990 External Reference #:[id number] Author Name Florence Childers M.D. Address [address] [place] [address] Care Team Providers Name Role Phone Florence Childers - Family Medicine Care Team Information Rope Cleaner Denise óLpez MD - Sports Medicine Care Team Information Rope Cleaner Problems Active Problems Provider Date Gout Raj [...] Damaris He, 09/10/2012 0.15-0.03mg mouth once daily STOVE TENDER Tablets Imodium A-D 2 tabs after first Unknown 2mg Tablets diarrrheal stool, 1 after each subsequent stool, mdd 8 prn Ibuprofen 200 3-4 tabs by mouth Unknown 200mg every 4 hours as Tablets needed One Daily 1 tab daily Unknown Multivitamin Women Tablets History Medications Fluconazole 1 by mouth. repeat 4tabs B37.3 Florence Flores 03/01/2019 - 200mg in 4 days as Nicolas Childers 06/22/2019 Tablets necessary Immunizations CPT Code Status Date Vaccine Lot # [id number] Given 02/12/2017 Tdap Tetanus, W Pertussis [id number] [...] Result H/L Range Note Laboratory test 06/22/2019 [facility] Quickstrep NEG Negative finding (607)- - Procedures Description No Information Available Medical Devices Description No Information Available Encounters Type Date Location Provider Dx Diagnosis Office Visit 06/22/2019 Main Office Florence Childers J02.9 Acute pharyngitis, 3:30p M.D. unspecified Office Visit 03/01/2019 Main Office Florence Childers Z00.01 Encounter for general 1:00p M.D. adult medical exam w abnormal findings F17.210 Nicotine dependence, cigarettes, uncomplicated B37.3 Candidiasis of vulva and vagina L85.3 Xerosis cutis Assessments Date Code Description Provider 08/08/2019 R50.9 Fever, unspecified Florence Childers M.D. 06/22/2019 J02.9 Acute pharyngitis, unspecified Florence Childers M.D. 03/01/2019 Z00.01 Encounter for general adult medical Florence Childers M.D. examination with abnormal findings 03/01/2019 F17.210 Nicotine dependence, cigarettes, Florence Childers M.D. uncomplicated 03/01/2019 B37.3 Candidiasis of vulva and vagina Florence Childers M.D. 03/01/2019 L85.3 Xerosis cutis Florence Childers M.D. Plan of Treatment 08/08/2019 - Florence Childers M.D.R50.9 Fever, unspecifiedNew Labs:Covid19, PCR, Ordered: 08/08/19Flu A&B (Fma), Ordered: 08/08/19Comments:ok to take ibuprofen.AllComments:Medication Management Patient Understands medications she 's taking? Yes No Are there Barriers to Adherence? Yes No Has the patient been asked about herbal supplements and therapies, and OTC meds ? Yes No Care Plan1. Patient has been queried about patient's goals/preferences and functional/lifestyle goals at relevant visits. If relevant, describe: na2. Treatment goals as explained to the patient: above3. Are there barriers to meeting treatment goals? Yes No If Yes, please describe:4. Self-Management goals as described to the patient: Yes NoR50.9 Fever, unspecifiedNew Labs:Covid19, PCR, Ordered: 08/08/19Flu A&B (Fma), Ordered: 08/08/19Comments:ok to take ibuprofen.AllComments:Medication Management Patient Understands medications she 's taking? [...]
[2019-08-12 14:05] VITALS: BP 150/72
== END 2019-08-12 13:53 | disposition home or self-care (01) ==
LOC: ED 12:10
DX: R50.9 Fever, unspecified (principal); R07.89 Other chest pain; R06.2 Wheezing; R19.7 Diarrhea, unspecified; Z72.0 Tobacco use; Z79.3 Long term (current) use of hormonal contraceptives
CPT/HCPCS: 36415; 71046; 80053; 85025; 85379; 93005; 99283